=== PATIENT | male | born 1990 | race Two or more races ===

== ENCOUNTER 2020-03-10 18:50 | Emergency (ER) | payer SELFPAY ==
[~2020-03-10] VITALS: Ht 165.1 cm; Wt 69.4 kg
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
[2020-03-10] MEDS ORDERED: oxyCODONE/APAP (5/325 MG) 1 UDTAB TABLET ONE (19:04)
[2020-03-10] MEDS ORDERED: IBUPROFEN 600 MG TABLET PO ONE ×2 (19:05→19:30)
--- NOTE | 2020-03-10 19:08 | NUR ---
[employer]INEERING MANAGER AT BEDSIDE
--- NOTE | 2020-03-10 19:10 | NUR ---
REPORT GIVEN TO LAURA HESTER FOR [facility]
--- NOTE | 2020-03-10 19:17 | NUR ---
REPORT RECEIVED FROM MIR PIRES FOR [facility]
--- NOTE | 2020-03-10 19:17 | NUR ---
XRAY AT BEDSIDE
--- NOTE | 2020-03-10 19:23 | NUR ---
[employer] AT BEDSIDE
[2020-03-10] MEDS ORDERED: oxyCODONE/APAP (5/325 MG) 1 UDTAB TABLET PO ONE (19:30)
[2020-03-10 20:46] VITALS: BP 124/87
--- NOTE | 2020-03-10 20:46 | NUR ---
PT REFUSED TO SIGN HIS DISCHARGE INSTRUCTIONS
== END 2020-03-10 20:47 | disposition home or self-care (01) ==
LOC: ER 18:51
DX: S40.011A Contusion of right shoulder, initial encounter (principal); F17.200 Nicotine dependence, unspecified, uncomplicated; V13.4XXA Pedal cycle driver injured in collision with car, pick-up truck or van in traffic accident, initial encounter; Y93.55 Activity, bike riding; Y92.89 Other specified places as the place of occurrence of the external cause; Y99.8 Other external cause status
CPT/HCPCS: 73030-TC; 73130-TC